=== PATIENT | male | born 1995 ===

== ENCOUNTER 2022-08-12 19:31 | Emergency (ER) | payer OTHER ==
[~2022-08-12] VITALS: Ht 172.7 cm; Wt 84.0 kg
[2022-08-12] MEDS ORDERED: IBUPROFEN 600 MG TABLET PO ONE (19:45)
[2022-08-12] MEDS ORDERED: NEOMYCIN/POLYMYXIN B/HYDROCORT 10 ML OTIC SOLUTION AD ONE (19:45)
[2022-08-12] MEDS ORDERED: CIPROFLOXACIN HCL 250 MG TABLET PO ONE (19:45)
[2022-08-12] MEDS ORDERED: IBUP-2070 PO ×2 (19:53→20:20)
[2022-08-12] MEDS ORDERED: CIPR500T10 PO ×2 (19:53→20:20)
[2022-08-12] MEDS ORDERED: CORTSOL AD ×2 (19:53→20:20)
[2022-08-12 20:10] VITALS: BP 119/78
== END 2022-08-12 21:07 | disposition home or self-care (01) ==
LOC: EMS 19:52
DX: H60.91 Unspecified otitis externa, right ear (principal)
CPT/HCPCS: 99284; Z7502; Z7610